=== PATIENT | female | born 1995 | race Two or more races ===

== ENCOUNTER 2021-06-18 18:11 | Emergency (ER) | payer OTHER ==
[~2021-06-18] VITALS: Ht 165.1 cm; Wt 66.2 kg
[2021-06-18] MEDS ORDERED: DICLOFENAC SODI75 MG PO (20:06)
[2021-06-18] MEDS ORDERED: MAXITROL EYE DRO5 ML OP (20:06)
== END 2021-06-18 20:24 | disposition home or self-care (01) ==
LOC: ER 18:11
DX: H10.11 Acute atopic conjunctivitis, right eye (principal)